=== PATIENT | female | born 1985 | race Caucasian/White ===

== ENCOUNTER → 2018-05-04 | Outpatient (CLI) | payer OTHER ==
--- NOTE | 2018-05-04 16:02 | Diagnostic Imaging Report ---
Indication: Palpable lump in the upper outer left breast. 2-D and 3-D bilateral diagnostic mammography was performed with CAD. Both breasts are heterogeneously dense limiting the sensitivity of mammography. There is a questionable nodular density noted in the far posterior outer left breast noted on the CC view near the BB marker. No definite mass on the MLO or ML views are seen. No suspicious calcifications are identified. Axillae are unremarkable. IMPRESSION: BI-RADS 0 Questionable nodular density in the far posterior outer left breast near the BB marker on the CC view. Further evaluation of the area or palpable abnormality with ultrasound is recommended. ACR BI-RADS Category 0: Incomplete. (Needs additional imaging evaluation). Result letter will be mailed to the patient. Note: At least 10% of breast cancer is not imaged by mammography. Dictated by: Dictated on workstation # [id number]
--- NOTE | 2018-05-05 14:45 | Diagnostic Imaging Report ---
Indication: Palpable lump in the upper outer left breast. Correlation is made with recent mammogram from earlier the same day. Sonographic interrogation of the area of questionable lump was performed. This corresponds to the upper outer aspect of the left breast. Axilla was also evaluated. No sonographic abnormality is seen. No solid or cystic mass is detected. Impression: BI-RADS category 1 No sonographic abnormality is detected. Continued close clinical and self-breast exam is recommended to confirm stability of the area of palpable abnormality. Negative imaging should not necessarily preclude biopsy of a clinically suspicious palpable abnormality. ACR BI-RADS Category 1: Negative. Result letter will be mailed to the patient. Note: At least 10% of breast cancer is not imaged by mammography. Dictated by: Dictated on workstation # [id number]
== END ==
LOC: RAD 12:40
PROVIDERS: ATTEND Family Medicine
DX: N63.21 Unspecified lump in the left breast, upper outer quadrant (principal)
CPT/HCPCS: 76642; 77066